=== PATIENT | female | born 1955 | race Caucasian/White ===

== ENCOUNTER → 2018-03-16 | Outpatient (CLI) | payer OTHER ==
[~2018-03-16] MED LIST: ACET650T40 PO; AMOX-556 PO; CALC667T3 PO; CELE-1 PO; CHOL200022 PO; CLO5 PO; DIAZ-303 PO; DIAZ-308 PO; DICL100G3 TOP; DICL1KIT5 TOP; DICL2SOL TOP; DIPH-1 PO; ESTR-32 PO; EXE25PT PO; FEMHRT PO; FLU10 PO; FLUO-201 PO; GLUC-110 PO; HYDR-4309 PO; ISOM1CAP2 PO; LOR1 PO; LOR5/325 PO; MECL-205 PO; METH500T6 PO; MULT1CAP59 PO; MVI; TRA50 PO; TYLENOL ARTHRITIS; [UNRECOGNIZED DRUG - CODE]; [UNRECOGNIZED DRUG - CODE] MC; [UNRECOGNIZED DRUG - OTHER] PO
--- NOTE | 2018-03-16 17:24 | RADIOLOGY IMAGING REPORT ---
FACILITY: [facility] PATIENT NAME: Maxi Hoffman : 1955 MR: [id number] V: [id number] EXAM DATE: ORDERING PHYSICIAN: JOSE DELGADO TECHNOLOGIST: [facility] Patient: Maxi Hoffman : 1955 Visit/Account:[id number] Date of Sevice: 03/16/2018 Left wrist, 2 views, and right wrist, 2 views. HISTORY: Bilateral wrist pain. COMPARISON: Left wrist 04/19/2016. Large marginal osteophytes, small subchondral cysts, and moderate joint space narrowing are present i n the left first carpal-metacarpal joint. Small marginal osteophytes, tiny subchondral cysts, and mod erate to severe joint space narrowing are present in the radiocarpal joints bilaterally, the right sc aphoid multangular joint, and the right first carpal-metacarpal joint. Subchondral sclerosis is prese nt in the right first carpal-metacarpal joint. Small marginal osteophytes and minimal to mild joint s pace narrowing are present in the distal radiocarpal joints bilaterally. A mild deformity is present in the left distal radial styloid consistent with an old healed fracture. No acute fractures are iden tified. IMPRESSION: Moderate to severe bilateral polyarticular osteoarthritis. Healed left radial styloid fracture. Report Dictated By: Cheko Cartagena MD at 03/16/2018 5:01 PM Report E-Signed By: Cheko Cartagena MD at 03/16/2018 5:08 PM WSN:[id number]
--- NOTE | 2018-03-16 17:24 | RADIOLOGY IMAGING REPORT ---
FACILITY: [facility] [place] PATIENT NAME: Maxi Hoffman : 1955 MR: [id number] V: [id number] EXAM DATE: ORDERING PHYSICIAN: JOSE DELGADO TECHNOLOGIST: [place] [facility] [place]: Maxi Hoffman : 1955 Visit/Account:[id number] Date of Sevice: 03/16/2018 Left wrist, 2 views, and right wrist, 2 views. HISTORY: Bilateral wrist pain. COMPARISON: Left wrist 04/19/2016. Large marginal osteophytes, small subchondral cysts, and moderate joint space narrowing are present i n the left first carpal-metacarpal joint. Small marginal osteophytes, tiny subchondral cysts, and mod erate to severe joint space narrowing are present in the radiocarpal joints bilaterally, the right sc aphoid multangular joint, and the right first carpal-metacarpal joint. Subchondral sclerosis is prese nt in the right first carpal-metacarpal joint. Small marginal osteophytes and minimal to mild joint s pace narrowing are present in the distal radiocarpal joints bilaterally. A mild deformity is present in the left distal radial styloid consistent with an old healed fracture. No acute fractures are iden tified. IMPRESSION: Moderate to severe bilateral polyarticular osteoarthritis. Healed left radial styloid fracture. Report Dictated By: Cheko Cartagena MD at 03/16/2018 5:01 PM Report E-Signed By: Cheko Cartagena MD at 03/16/2018 5:08 PM WSN:[id number]
--- NOTE | 2018-03-16 17:25 | RADIOLOGY IMAGING REPORT ---
[place] [facility] [place]: Maxi Hoffman : 1955 MR: [id number] V: [id number] EXAM DATE: ORDERING PHYSICIAN: JOSE DELGADO TECHNOLOGIST: Location: [facility] Patient: Maxi Hoffman : 1955 Visit/Account:[id number] Date of Sevice: 03/16/2018 Exam type: FOOT 2 VIEW RIGHT History: pain in joints Comparison: None. Findings: Two views of the right foot reveal severe degenerative changes throughout the tarsal metatarsal artic ulations. There are mild degenerative changes involving the right first metatarsophalangeal joint. Extensive degenerative changes are seen throughout the interphalangeal joints. There are hammertoe d eformities involving the second through fifth toes. There is also valgus deviation at the third four th and fifth MTP joints. No definite fracture or dislocation is seen although the phalanges are not ideally evaluated due to overlapping shadows. There is a small right calcaneal spur. Enthesopathic changes are seen at the insertion the Achilles tendon. IMPRESSION: 1. Degenerative changes of the right foot as described above Report Dictated By: Alexandra Giordano MD at 03/16/2018 5:04 PM Report E-Signed By: Alexandra Giordano MD at 03/16/2018 5:07 PM WSN:[email or web address]
--- NOTE | 2018-03-16 17:25 | RADIOLOGY IMAGING REPORT ---
FACILITY: [facility] [place] PATIENT NAME: Maxi Hoffman : 1955 MR: [id number] V: [id number] EXAM DATE: ORDERING PHYSICIAN: JOSE DELGADO TECHNOLOGIST: Location: [facility] Patient: Maxi Hoffman : 1955 Visit/Account:[id number] Date of Sevice: 03/16/2018 Exam type: FOOT 2 VIEW LEFT History: pain in joints Comparison: December 10, 2011. Findings: Two views the left foot submitted There are mild generative changes involving the left first MTP joint. There appear to be hammertoe d eformities involving the left third fourth and fifth toes. There is no evidence of acute fracture or dislocation. There is a small left calcaneal spur and mild enthesopathic changes at the insertion t he Achilles tendon. IMPRESSION: 1. Degenerative changes the left foot as described Report Dictated By: Alexandra Giordano MD at 03/16/2018 5:07 PM Report E-Signed By: Alexandra Giordano MD at 03/16/2018 5:09 PM WSN:[email or web address]
== END ==
LOC: RAD 15:24
PROVIDERS: ATTEND Nurse Practitioner Family
DX: M19.072 Primary osteoarthritis, left ankle and foot (principal); M19.071 Primary osteoarthritis, right ankle and foot; M20.41 Other hammer toe(s) (acquired), right foot; M21.071 Valgus deformity, not elsewhere classified, right ankle; M19.032 Primary osteoarthritis, left wrist; M19.031 Primary osteoarthritis, right wrist
CPT/HCPCS: 36415; 85651; 86140; 86200; 86430

== ENCOUNTER → 2018-03-24 | Outpatient (CLI) | payer OTHER ==
--- NOTE | 2018-03-24 14:50 | RADIOLOGY IMAGING REPORT ---
FACILITY: [facility] [place] PATIENT NAME: Maxi Hoffman : 1955 MR: [id number] V: [id number] EXAM DATE: ORDERING PHYSICIAN: RAKEL MANZO TECHNOLOGIST: Location: [facility] Patient: Maxi Hoffman : 1955 Visit/Account:[id number] Date of Sevice: 03/24/2018 CERVICAL SPINE MIN 4 VIEW Indication: Neck pain, Fall 1 month ago Comparison: None. Findings: There are postoperative changes from anterior cervical discectomy and fusion at C6-7. There is disc space narrowing with anterior osteophytes at C4-5 and C5-6. The facets are normal. Right and left neural foramen are patent. IMPRESSION: 1. Postoperative changes anterior cervical discectomy and fusion C6-7. 2. Moderate cervical spondylosis C4-5 and C5-6. Report Dictated By: Raymond Rosa at 03/24/2018 2:45 PM Report E-Signed By: Raymond Rosa at 03/24/2018 2:46 PM WSN:[id number]
== END ==
LOC: RAD 13:49
PROVIDERS: ATTEND Nurse Practitioner Primary Care
DX: M47.892 Other spondylosis, cervical region (principal); Z98.890 Other specified postprocedural states
CPT/HCPCS: 72050

== ENCOUNTER → 2018-04-30 | Outpatient (CLI) | payer OTHER | LOC: LAB 13:43 | PROVIDERS: ATTEND Internal Medicine | DX: R19.7 Diarrhea, unspecified (principal) ==

== ENCOUNTER → 2018-05-05 | Outpatient (REF) | payer OTHER | LOC: ZZSENDIN 10:38 | PROVIDERS: ATTEND Internal Medicine | DX: R19.7 Diarrhea, unspecified (principal) | CPT/HCPCS: 83520 ==

== ENCOUNTER → 2018-06-07 | Outpatient (CLI) | payer OTHER ==
[~2018-06-07] MED LIST changes: +FOLI-68 PO; +HYDR200T77 PO; +MELA3TAB31 PO; +METH2.5T43 PO
--- NOTE | 2018-06-07 15:18 | RADIOLOGY IMAGING REPORT ---
FACILITY: [facility] PATIENT NAME: Maxi Hoffman : 1955 MR: [id number] V: [id number] EXAM DATE: ORDERING PHYSICIAN: JOSE DELGADO TECHNOLOGIST: [place] [facility] [place] : 1955 Visit/Account:[id number] Date of Sevice: 06/07/2018 Thyroid Ultrasound HISTORY: Thyroid nodule. COMPARISON: None. FINDINGS: SIZE: Normal. Right lobe: 4.7 x 2.0 x 2.0 cm Left lobe: 3.6 x 1.5 x 1.3 cm Isthmus: 4 mm PARENCHYMA: Diffusely heterogeneous. NODULES: Right lobe: * Suspected isoechoic nodule inferiorly measuring 1.8 x 1.4 x 0.9 cm. Left lobe: * None discrete. Isthmus: * None discrete. VASCULARITY: Diffusely increased ADDITIONAL FINDINGS: None. IMPRESSION: 1. Diffuse heterogeneity of the thyroid echogenicity and echotexture with increased vascularity. Ap pearance would favor an underlying thyroiditis such as Avis's thyroiditis. 2. 1.8 cm isoechoic nodule within the right thyroid lobe inferiorly. This is low suspicion but FNA is recommended according to the [place] thyroid [employer] guidelines based on its size. REFERENCE: 2015 [place] [employer] Management Guidelines for Adult Patients with Thyroid Nodules and D ifferentiated Thyroid Cancer: The [place] [employer] Guidelines Task Force on Thyroid Nodul es and Differentiated Thyroid Cancer. SONOGRAPHIC PATTERNS: * Benign: Purely cystic nodules (no solid component); estimated risk of malignancy <1 percent; no bi opsy recommended. * Very Low Suspicion: Spongiform or partially cystic nodules without any of the sonographic features described in low, intermediate, or high suspicion patterns; estimated risk of malignancy <3 percent; consider FNA at > 2 cm (Observation without FNA is also a reasonable option). * Low Suspicion: Isoechoic or hyperechoic solid nodule, or partially cystic nodule with eccentric so lid areas, without microcalcification, irregular margin or ETE (extra-thyroidal extension), or taller than wide shape; estimated risk of malignancy 5-10 percent; recommend FNA at >1.5 cm. * Intermediate Suspicion: Hypoechoic solid nodule with smooth margins without microcalcifications, E TE (extra-thyroidal extension), or taller than wide shape; estimated risk of malignancy 10-20 percent ; recommend FNA at > 1 cm. * High Suspicion: Solid hypoechoic nodule or solid hypoechoic component of a partially cystic nodule with one or more of the following features: irregular margins (infiltrative, microlobulated), microc alcifications, taller than wide shape, rim calcifications with small extrusive soft tissue component, evidence of ETE (extra-thyroidal extension); estimated risk of malignancy >70-90 percent; recommend FNA at > 1 cm. NOTES: * Although a sonographically suspicious subcentimeter thyroid nodule without evidence of extrathyroi timmy extension or sonographically suspicious lymph nodes may be observed with close sonographic follow -up rather than pursuing immediate FNA, patient age and preference may modify decision-making. A > 50% interval increase in nodule volume and/or development of new suspicious sonographic features are felt to be a valid reasons for potential re-aspiration of a nodule previously shown to have benig n FNA cytology. Report Dictated By: Hipolito Santiago at 06/07/2018 3:08 PM Report E-Signed By: Hipolito Santiago at 06/07/2018 3:14 PM WSN:[email or web address]
--- NOTE | 2018-06-08 07:56 | RADIOLOGY IMAGING REPORT ---
FACILITY: [facility] PATIENT NAME: Maxi Hoffman : 1955 MR: [id number] V: [id number] EXAM DATE: ORDERING PHYSICIAN: JOSE DELGADO TECHNOLOGIST: Location: [facility] Patient: Maxi Hoffman : 1955 Visit/Account:[id number] Date of Sevice: 06/07/2018 DEXA Scan Clinical history: Osteopenia. Comparison: DEXA scan from 05/19/2016. LUMBAR SPINE: The bone mineral density (BMD) measured from L1-L4 correlates with a Z-score 1.6 and a T-score of 0. 1 which is Normal as defined by the World Health Organization. The corresponding risk of fracture in the lumbar spine is Not increased compared with a young adult reference population. This value has increase by 4.6 % since the prior study. More than 5% change is considered significant. HIP: Bone mineral density (BMD) measured in the left femoral neck region correlates with a Z-score -0.2 an d a T-score of -1.5 which is osteopenia as defined by the World Health Organization. The correspon ding risk of fracture in the hip is increased compared with a young adult reference population. The t otal hip value has decreased by 2.6 % since the prior study. More than 5% change is considered signi ficant. Bone mineral density (BMD) measured in the Femoral Neck region measures 0.825 g/cm2. IMPRESSION: 1. Lumbar spine: Normal. There has been increase in the bone mineral density since the previous exa m. 2. Left femoral neck region: Osteopenia. There has been decrease in the bone mineral density of the total hip since the previous exam. 3. Femoral Neck: Bone Mineral Density is 0.825 g/cm2 The next DEXA scan of this patient should include the following sites: L1-L4 and the left hip. FRAX? WHO Fracture Risk Assessment Tool link: <http://www.shef.ac.uk/FRAX/tool.jsp?locationValue=9> PLEASE NOTE: 1) The World Health Organization defines low BMD as follows: T-score Normal > -1 Osteopenia < -1 and > -2.5 Osteoporosis < -2.5 without fractures Established osteoporosis < -2.5 with fractures 2) In general, you may wish to consider: Diagnosis Treatment Follow-up DEXA Normal BMD Prevention 2-3 years Osteopenia Prevention/therapy 1-2 years Osteoporosis Therapy Yearly 3) Fracture risk estimated from the T-score is more accurate for vertebral fractures (often spontane ous) than for hip fractures. Report Dictated By: Raymond Rosa at 06/08/2018 7:50 AM Report E-Signed By: Raymond Rosa at 06/08/2018 7:52 AM WSN:[id number]
== END ==
LOC: US 00:33
PROVIDERS: ATTEND Nurse Practitioner Family
DX: M85.88 Other specified disorders of bone density and structure, other site (principal); E04.2 Nontoxic multinodular goiter
CPT/HCPCS: 76536; 77080

== ENCOUNTER 2018-07-07 11:16 | Outpatient (RCR) | payer OTHER ==
[~2018-07-07 11:16] MED LIST changes: +CHOL200018 PO; -CHOL200022 PO; +SCOP1PAT16 TD
[2018-07-07 12:17] LABS: INR 0.97
--- NOTE | 2018-07-12 18:01 | RADIOLOGY IMAGING REPORT ---
FACILITY: [facility] - [place] PATIENT NAME: Maxi Hoffman : 1955 MR: [id number] V: [id number] EXAM DATE: ORDERING PHYSICIAN: JOSE DELGADO TECHNOLOGIST: Location: [facility] [place] Patient: Maxi Hoffman : 1955 Visit/Account:[id number] Date of Sevice: 07/12/2018 Exam type: THYROID BIOPSY FINE NEEDLE ASP History: thyroid nodule Comparison: June 07, 2018. Findings: Informed consent was obtained. The right-sided the patient's neck was prepped and draped in usual st erile fashion. Local anesthesia was accomplished with 1% lidocaine. Under sonographic guidance four 25-gauge FNA biopsies were obtained through the hypoechoic nodule in the anterior right lobe the keaton ples were given to the engineering technologist for processing. The procedure was accomplished without apparent complication IMPRESSION: 1. Successful sonographically guided right-sided thyroid nodule Report Dictated By: Alexandra Giordano MD at 07/12/2018 5:56 PM Report E-Signed By: Alexandra Giordano MD at 07/12/2018 5:58 PM WSN:[email or web address]
== END 2018-08-11 ==
LOC: US 11:16
PROVIDERS: ATTEND Nurse Practitioner Family
DX: E04.1 Nontoxic single thyroid nodule (principal)
CPT/HCPCS: 10022; 36415; 76942; 85610; 85730; 88104; 88172

== ENCOUNTER → 2018-09-10 | Outpatient (CLI) | payer MEDICARE, OTHER ==
[~2018-09-10] MED LIST changes: -HYDR-4309 PO; +HYDR-653 PO
== END ==
LOC: LAB 09:48
PROVIDERS: ATTEND Nurse Practitioner Family
DX: E06.3 Autoimmune thyroiditis (principal)
CPT/HCPCS: 36415; 84443

== ENCOUNTER → 2018-09-14 | Outpatient (CLI) | payer MEDICARE, OTHER ==
[2018-09-14 09:06] LABS: PLATELET COUNT, AUTOMATED 310 K/uL (150-450)
== END ==
LOC: LAB 08:48
PROVIDERS: ATTEND Nurse Practitioner Family
DX: R53.83 Other fatigue (principal); Z79.899 Other long term (current) drug therapy
CPT/HCPCS: 36415; 82040; 82247; 82310; 82374; 82435; 82565; 82607; 82746; 82947; 84075; 84132; 84155; 84295; 84450; 84460; 84520; 85025

== ENCOUNTER → 2018-10-07 | Outpatient (CLI) | payer MEDICARE, OTHER ==
[~2018-10-07] MED LIST changes: +FLUC150T40 PO; +PNEU0.5D3 IM
== END ==
LOC: LAB 10:24
PROVIDERS: ATTEND Physician Assistant
DX: M06.9 Rheumatoid arthritis, unspecified (principal); Z79.899 Other long term (current) drug therapy
CPT/HCPCS: 36415; 85651; 86140; 86200; 86430

== ENCOUNTER → 2019-02-22 | Outpatient (CLI) | payer MEDICARE, OTHER ==
[2019-02-22 11:04] LABS: PLATELET COUNT, AUTOMATED 336 K/uL (150-450)
== END ==
LOC: LAB 10:35
PROVIDERS: ATTEND Physician Assistant
DX: Z51.81 Encounter for therapeutic drug level monitoring (principal); Z79.899 Other long term (current) drug therapy
CPT/HCPCS: 36415; 82040; 82247; 82310; 82374; 82435; 82565; 82947; 84075; 84132; 84155; 84295; 84450; 84460; 84520; 85027; 85651

== ENCOUNTER 2019-04-18 19:05 | Emergency (ER) | payer MEDICARE, OTHER ==
--- NOTE | 2019-04-18 19:24 | ER Report ---
History and Physical Time Seen By MD: 19:24 Hx. of Stated Complaint: PATIENT FELL ON THURSDAY PLAYING PICKLE BALL, SHE LANDED ON LEFT SIDE, HAVING A LOT OF PAIN UNDER LEFT BREAST ALONG THE RIBS, AND LEFT HAND. PATIENT STATES IT HURTS TO BREATH. HAND IS REALLY SWOLLEN AND BRUISED, ABRASIONS LEFT KNUCKLES AND RIGHT PALM, AND BILATEREAL ELBOWS. HPI/ROS CHIEF COMPLAINT: Left rib pain, hand pain, abrasions to hand, bilateral elbows HISTORY OF PRESENT ILLNESS: 63-year-old female patient presents to emergency room with complaint of a fall on Thursday. Patient states she was playing pickle ball and was stretching out to get doable. She states that she fell, landing on her left outstretched arm and hit her ribs on the curb. Patient states that she has had pain to the left ribs since then. She states that she has pain with any deep inspiration. She denies any cough, fevers, chills. She states she has pain to her left hand as well. She states it was swollen more previously and has improved over the last couple of days. She states that she's been taking Tylenol for pain with no improvement. She denies any numbness or tingling in the hand. REVIEW OF SYSTEMS: Respiratory: No cough, no dyspnea. Cardiovascular: No chest pain, no palpitations. Gastrointestinal: No vomiting, no abdominal pain. Musculoskeletal: As noted above Allergies: Coded Allergies: erythromycin base (Verified Allergy, Mild, 04/18/19) NSAIDS (Non-Steroidal Anti-Inflamma (Verified Adverse Reaction, Mild, CAN'T TAKE DUE TO BEING ON METHOTREXIATE, 04/18/19) Home Meds Active Scripts Hydrocodone Bit/Acetaminophen (HYDROCODON-ACETAMINOPHEN 5-325) 1 Each Tablet, 1 EACH PO Q4-6H PRN for PAIN, #8 TAB Prov:SERGEY SCHMIDT AUTOMOTIVE WORKER 04/18/19 Fluoxetine Hcl (PROZAC) 10 Mg Capsule, 1 TAB PO DAILY, #90 CAPSULE 1 Refill Prov:JOSE DELGADO APRN AUTOMOTIVE WORKER-C 10/18/18 Reported Medications Bifidobacterium Infantis (ALIGN) 4 Mg Capsule, 4 MG PO QDAY, CAPSULE 04/18/19 Cyanocobalamin (Vitamin B-12) (VITAMIN B-12) 500 Mcg Tablet, 1500 MCG PO QDAY 04/18/19 Psyllium Husk (FIBER) 0.52 Gm Capsule, 1 CAP PO QDAY, CAPSULE 04/18/19 Calcium Carbonate (CALCIUM) 500 Mg Tablet, 1500 MG PO QDAY 04/18/19 Glucosamine/Msm/Chondroitin A (GLUCOSAMINE CHONDROIT MSM TAB) 1 Each Tablet, 1500 MG PO QDAY 04/18/19 Folic Acid (FOLIC ACID) 1 Mg Tablet, 1 MG PO QDAY, TAB 05/24/18 Cholecalciferol (Vitamin D3) (VITAMIN D) 2,000 Unit Tablet, 2000 UNIT PO QDAY 12/13/15 Betahistine Hcl (BETAHISTINE) 5 Gm Powder, 16 GM MC QDAY 12/13/15 Acetaminophen (ACETAMINOPHEN) 650 Mg Tablet.er, 2 TAB PO PRN, TAB 12/13/15 Multivitamins (Multivitamin) 1 Each Capsule, 1 TAB PO DAILY 10/25/12 Discontinued Reported Medications Hydroxychloroquine Sulfate (PLAQUENIL) 200 Mg Tablet, 400 MG PO QDAY 05/26/18 Melatonin (MELATONIN) 3 Mg Tablet, 3 MG PO 05/24/18 Methotrexate Sodium (METHOTREXATE) Unknown Strength Tablet, PO Q12H 05/24/18 Methylcellulose (FIBER) 500 Mg Tablet, 1 MG PO QDAY 12/13/15 Glucosamine 5GBA-Fjn-Ijtnjqkaf (Qgyekprmsix-Khdnxmrxq-Dih Tab) 1 Each Tablet, 1 TAB PO DAILY 10/25/12 Discontinued Scripts Lorazepam (LORAZEPAM) 1 Mg Tab, 1 TAB PO BID PRN for DIZZINESS, #14 TAB 2 Refills Prov:JOSE DELGADO APRN-C 03/04/19 Fluconazole (DIFLUCAN) 150 Mg Tablet, 1 TAB PO Q72H, #2 TAB 0 Refills Prov:JOSE DELGADO APRNP-C 09/21/18 Scopolamine (Scopolamine) 1 Mg/3 Day Patch.td.3, 1 PATCH.72H TD Q72H, #5 PATCH.72H Prov:BOZENA DELGADO MD 06/30/18 Diphenoxylate Hcl/Atropine (LOMOTIL TABLET) 1 Each Tablet, 1 EACH PO DIRECTED, #60 TAB 1 Refill as needed for diarrhea 1 tab after each loose stool - do not exceed 4 tabs in 24 hours Prov:JOSE DELGADO APRN-C 02/17/18 Diazepam (DIAZEPAM) 5 Mg Tablet, 1 TAB PO QHS PRN for MUSCLE SPASMS, #30 TAB 1 Refill Prov:JOSE DELGADO APRN AUTOMOTIVE WORKER-C 02/17/18 Past Medical/Surgical History Patient has a past medical history of bursitis, arthritis, fractures, Mnire's disease, rheumatoid arthritis, alcohol use, anxiety, breast cancer. Patient has a surgical history of lumpectomy, deviated septum repair, cervical spine fusion, left knee replacement, anterior cruciate ligament repair. Patient has a family medical history of cancer, CAD, stroke, diabetes. Reviewed Nurses Notes: Yes Hx Smoking: No Smoking Status: Never Smoker Exposure to Second Hand Smoke?: No Hx Substance Use Disorder: No Hx Alcohol Use: Yes (GLASS OF WINE A FEW TIMES A WEEK) Constitutional Vital Sign - Last 24 Hours 04/18/19 04/18/19 04/18/19 04/18/19 19:16 19:20 19:30 19:35 Temp 98.4 Pulse 72 72 67 Resp 16 B/P (MAP) 128/106 126/83 (97) Pulse Ox 95 94 96 O2 Delivery Room Air 04/18/19 04/18/19 04/18/19 04/18/19 19:50 20:30 20:35 20:50 Pulse 67 69 72 B/P (MAP) 132/79 (96) Pulse Ox 92 93 95 04/18/19 04/18/19 04/18/19 04/18/19 21:00 21:05 21:20 21:30 Pulse 69 70 B/P (MAP) 128/75 (92) 125/71 (89) Pulse Ox 92 93 04/18/19 04/18/19 04/18/19 04/18/19 21:35 21:40 21:55 22:00 Pulse 70 74 71 B/P (MAP) 123/70 (87) Pulse Ox 93 93 93 04/18/19 22:10 Pulse 70 Pulse Ox 95 Physical Exam General Appearance: The patient is alert, has no immediate need for airway protection and no current signs of toxicity. Respiratory: Chest is tender to the left ribs, lungs are clear to auscultation. Cardiac: regular rate and rhythm Gastrointestinal: Abdomen is soft and non tender, no masses, bowel sounds normal. Musculoskeletal: Neck: Neck is supple and non tender. Extremities have full range of motion and are non tender. Patient does have tenderness to the left hand, seemed to be worse over the second and fourth metacarpal. Skin: No rashes or lesions. Abrasion to bilateral hands, bilateral elbows. DIFFERENTIAL DIAGNOSIS: After history and physical exam differential diagnosis was considered for rib fracture, contusion, abrasion, and hand fracture. Medical Decision Making EKG/Imaging Imaging EXAMINATION: Left hand radiographs 3 views HISTORY: Fall with pain. COMPARISON: None. FINDINGS: PA, lateral and oblique views of the left hand are obtained. Bones: Bony structures are osteopenic. There is no acute fracture or dislocation visualized. Joint spaces: Moderate joint space narrowing and bony spurring of the 1st CMC joint. Hardware: None. Alignment: Normal. Soft tissues: Negative. IMPRESSION: 1. No acute left hand fracture. 2. Moderate degenerative joint disease of the left 1st CMC joint is suspicious for osteoarthritis. Report Dictated By: Jeanne Agosto MD at 04/18/2019 10:00 PM Report E-Signed By: Jeanne Agosto MD at 04/18/2019 10:02 PM EXAMINATION: Chest radiographs 2 views Left rib radiographs 3 views HISTORY: Fall with pain. COMPARISON: Chest radiograph from 03/10/2011. FINDINGS: PA and lateral views of the chest, and AP and bilateral oblique views of the left ribs are obtained. Lines/tubes: None. Lungs/pleura: Mild left basilar atelectasis. No focal consolidation or pleural effusion. Heart: Negative. Mediastinum: Negative. Bony structures/body wall: Fusion hardware at the cervicothoracic junction. A marker is placed at the site of pain indicated by the patient. The marker overlies the left 10th posterolateral rib. There is no acute left rib fracture visualized. IMPRESSION: 1. Mild left basilar atelectasis without radiographic evidence of other acute cardiopulmonary disease. 2. No acute left rib fracture. Report Dictated By: Jeanne Agosto MD at 04/18/2019 10:02 PM Report E-Signed By: Jeanne Agosto MD at 04/18/2019 10:07 PM ED Course/Re-evaluation ED Course Patient was admitted to exam room, history and physical were obtained. Differential diagnoses were considered. On examination lungs are clear, abdomen is soft nontender, heart is regular. Patient does have tenderness to the chest and ribs. X-rays done of the left ribs, left hand. Patient does have swelling to the left hand as well as tenderness to the second and fourth metacarpal. X-rays were read by radiologist as negative. I do believe the patient likely does have a fracture of her ribs. With that it does not appear to be displaced. We will go ahead and discharge patient home with pain medication. Patient was also given incentive spirometer. She is return to the emergency room if condition worsens. She is to follow-up with her primary care provider in the next week. Patient asked if she can take Tylenol as opposed to the pain medication. I informed her that I will be fine as long as she stays less than 3000 mg a day. Patient verbalized understanding and agreement with plan. Decision to Disposition Date: April 18, 2019 Decision to Disposition Time: 22:13 Depart Departure Latest Vital Signs Vital Signs Date Time Temp Pulse Resp B/P (MAP) Pulse Ox O2 Delivery O2 Flow Rate FiO2 04/18/19 22:10 70 95 04/18/19 22:00 123/70 (87) 04/18/19 19:16 98.4 16 Room Air Impression: Primary Impression: Rib fractures Additional Impression: Hand contusion Condition: Improved Disposition: HOME OR SELF-CARE Referrals: JOSE DELGADO APRN AUTOMOTIVE WORKER-C (PCP) New Scripts Hydrocodone Bit/Acetaminophen (HYDROCODON-ACETAMINOPHEN 5-325) 1 Each Tablet 1 EACH PO Q4-6H PRN for PAIN, #8 TAB Prov: ROXANASERGEY MARNIE 04/18/19 Patient Instructions: Rib Fracture (ED) Additional Instructions: Limit activity by pain. Increase fluid intake. Use the incentive spirometer every 30 minutes for 5-10 breaths. Return to the ER if condition worsens. Ice the ribs 2-3 times a day for 10-15 minutes. You may take Tylenol in addition to the pain medication, but make sure that you are keeping your Tylenol level less than 3000mg a day. There is 325 mg of Tylenol in each of the pain pills. Problem Qualifiers Primary Impression: Rib fractures Encounter type: initial encounter Rib fracture type: single rib Fracture type: closed Laterality: left Qualified Codes: S22.32XA - Fracture of one rib, left side, initial encounter for closed fracture Additional Impression: Hand contusion Encounter type: initial encounter Laterality: left Qualified Codes: S60.222A - Contusion of left hand, initial encounter SERGEY SCHMIDT AUTOMOTIVE WORKER April 18, 2019 19:24
[2019-04-18] MEDS ORDERED: DIPHTH/TETANUS/ACEL. PERTUSSIS IM ONLY ONE (19:30)
[2019-04-18] MEDS ORDERED: APAP/HYDROCODONE 325/5 TAB PO ONE (19:35)
[2019-04-18] MEDS ORDERED: CALC500T6 PO (21:44)
[2019-04-18] MEDS ORDERED: BIFI4CAP2 PO (21:44)
[2019-04-18] MEDS ORDERED: PSYL0.5235 PO (21:44)
[2019-04-18] MEDS ORDERED: GLUC1TAB35 PO (21:44)
[2019-04-18] MEDS ORDERED: CYAN500T38 PO (21:44)
[2019-04-18 22:00] VITALS: BP 123/70
--- NOTE | 2019-04-18 22:06 | RADIOLOGY IMAGING REPORT ---
FACILITY: [facility] PATIENT NAME: Maxi Hoffman : 1955 MR: [id number] V: [id number] EXAM DATE: ORDERING PHYSICIAN: SERGEY SCHMIDT TECHNOLOGIST: Location: [facility] Patient: Maxi Hoffman : 1955 Visit/Account:[id number] Date of Sevice: 04/18/2019 EXAMINATION: Left hand radiographs 3 views HISTORY: Fall with pain. COMPARISON: None. FINDINGS: PA, lateral and oblique views of the left hand are obtained. Bones: Bony structures are osteopenic. There is no acute fracture or dislocation visualized. Joint spaces: Moderate joint space narrowing and bony spurring of the 1st CMC joint. Hardware: None. Alignment: Normal. Soft tissues: Negative. IMPRESSION: 1. No acute left hand fracture. 2. Moderate degenerative joint disease of the left 1st CMC joint is suspicious for osteoarthritis. Report Dictated By: Jeanne Agosto MD at 04/18/2019 10:00 PM Report E-Signed By: Jeanne Agosto MD at 04/18/2019 10:02 PM WSN:[id number]
--- NOTE | 2019-04-18 22:11 | RADIOLOGY IMAGING REPORT ---
FACILITY: [facility] PATIENT NAME: Maxi Hoffman : 1955 MR: [id number] V: [id number] EXAM DATE: ORDERING PHYSICIAN: SERGEY SCHMIDT TECHNOLOGIST: Location: [facility] Patient: Maxi Hoffman : 1955 Visit/Account:[id number] Date of Sevice: 04/18/2019 EXAMINATION: Chest radiographs 2 views Left rib radiographs 3 views HISTORY: Fall with pain. COMPARISON: Chest radiograph from 03/10/2011. FINDINGS: PA and lateral views of the chest, and AP and bilateral oblique views of the left ribs are obtained. Lines/tubes: None. Lungs/pleura: Mild left basilar atelectasis. No focal consolidation or pleural effusion. Heart: Negative. Mediastinum: Negative. Bony structures/body wall: Fusion hardware at the cervicothoracic junction. A marker is placed at th e site of pain indicated by the patient. The marker overlies the left 10th posterolateral rib. There is no acute left rib fracture visualized. IMPRESSION: 1. Mild left basilar atelectasis without radiographic evidence of other acute cardiopulmonary disease . 2. No acute left rib fracture. Report Dictated By: Jeanne Agosto MD at 04/18/2019 10:02 PM Report E-Signed By: Jeanne Agosto MD at 04/18/2019 10:07 PM WSN:[id number]
--- NOTE | 2019-04-18 22:11 | RADIOLOGY IMAGING REPORT ---
FACILITY: [facility] PATIENT NAME: Maxi Hoffman : 1955 MR: [id number] V: [id number] EXAM DATE: ORDERING PHYSICIAN: SERGEY SCHMIDT TECHNOLOGIST: Location: [facility] Patient: Maxi Hoffman : 1955 Visit/Account:[id number] Date of Sevice: 04/18/2019 EXAMINATION: Chest radiographs 2 views Left rib radiographs 3 views HISTORY: Fall with pain. COMPARISON: Chest radiograph from 03/10/2011. FINDINGS: PA and lateral views of the chest, and AP and bilateral oblique views of the left ribs are obtained. Lines/tubes: None. Lungs/pleura: Mild left basilar atelectasis. No focal consolidation or pleural effusion. Heart: Negative. Mediastinum: Negative. Bony structures/body wall: Fusion hardware at the cervicothoracic junction. A marker is placed at th e site of pain indicated by the patient. The marker overlies the left 10th posterolateral rib. There is no acute left rib fracture visualized. IMPRESSION: 1. Mild left basilar atelectasis without radiographic evidence of other acute cardiopulmonary disease . 2. No acute left rib fracture. Report Dictated By: Jeanne Agosto MD at 04/18/2019 10:02 PM Report E-Signed By: Jeanne Agosto MD at 04/18/2019 10:07 PM WSN:[id number]
[2019-04-18] MEDS ORDERED: HYDR-385 PO (22:14)
[2019-04-18] MEDS ORDERED: ACET/HYDROC 5/325MG TH ER ONLY 2 TAB/BOTTLE PO ONE (22:20)
[2019-04-18] MEDS ORDERED: METH2.5T43 PO (22:39)
== END 2019-04-18 22:36 | disposition home or self-care (01) ==
LOC: ER 19:23
DX: S22.32XA Fracture of one rib, left side, initial encounter for closed fracture (principal); S60.222A Contusion of left hand, initial encounter
CPT/HCPCS: 71046; 71100; 73130; 90471; 90715; 99284; A9270

== ENCOUNTER → 2019-05-18 | Outpatient (CLI) | payer MEDICARE, OTHER ==
[~2019-05-18] MED LIST changes: +BIFI4CAP2 PO; +CALC500T6 PO; +CYAN500T39 PO; +FLUO-177 PO; +GLUC1TAB35 PO; +HYDR-385 PO; +PSYL0.5235 PO
== END ==
LOC: LAB 16:30
PROVIDERS: ATTEND Physician Assistant
DX: H81.01 Meniere's disease, right ear (principal); H90.3 Sensorineural hearing loss, bilateral

== ENCOUNTER → 2019-05-18 | Outpatient (CLI) | payer MEDICARE, OTHER ==
[2019-05-18 17:16] LABS: PLATELET COUNT, AUTOMATED 318 K/uL (150-450)
== END ==
LOC: LAB 16:57
PROVIDERS: ATTEND Physician Assistant
DX: Z79.899 Other long term (current) drug therapy (principal)
CPT/HCPCS: 36415; 82040; 82247; 82310; 82374; 82435; 82565; 82947; 84075; 84132; 84155; 84295; 84450; 84460; 84520; 85025; 85651